=== PATIENT | female | born 1975 | race Caucasian/White ===

== ENCOUNTER → 2020-03-06 | Outpatient (CLI) | payer OTHER | END | disposition home or self-care (01) | LOC: LAB 13:27 → LAB SHORT 13:27 | PROVIDERS: Family Medicine | DX: Z01.419 Encounter for gynecological examination (general) (routine) without abnormal findings (principal) | CPT/HCPCS: G0123 ==

== ENCOUNTER → 2021-06-24 | Outpatient (CLI) | payer OTHER | END | disposition home or self-care (01) | LOC: PLD 07:35 → LAB SHORT 07:35 | DX: N93.8 Other specified abnormal uterine and vaginal bleeding (principal) | CPT/HCPCS: 88305 ==

== ENCOUNTER 2021-08-22 07:01 | Inpatient (IN) | payer OTHER ==
[~2021-08-22] VITALS: Ht 170.2 cm; Wt 80.6 kg
[2021-08-22] MEDS ORDERED: SERT50 PO (08:05)
[2021-08-22] MEDS ORDERED: Hair, Skin & N1 EACH PO (08:05)
[2021-08-22] MEDS ORDERED: VITAMIN D5000 UNIT PO (08:06)
[2021-08-22 11:49] LABS: BASOPHILS ABSOLUTE AUTO 0.05 K/mm3 (0.00-0.23); BASOPHILS PERCENT AUTO 0 % (0-2); EOSINOPHILS ABSOLUTE AUTO 0.04 K/mm3 (0.00-0.68); EOSINOPHILS PERCENT AUTO 0 % (0-6); Hematocrit 41.8 % (33.0-51.0); Hemoglobin 13.7 g/dL (11.5-16.0); IMMATURE GRAN ABSOLUTE AUTO 0.07 K/mm3 (0.00-0.10); IMMATURE GRAN PERCENT AUTO 1 % (0-1); LYMPHOCYTES ABSOLUTE AUTO 0.92 K/mm3 (0.84-5.20); LYMPHOCYTES PERCENT AUTO 7 % (21-46); MONOCYTES ABSOLUTE AUTO 0.31 K/mm3 (0.16-1.47); MONOCYTES PERCENT AUTO 2 % (4-13); Mean Corpuscular HGB 30.2 pg (26.0-34.0); Mean Corpuscular HGB Conc 32.8 g/dL (31.5-36.5); Mean Corpuscular Volume 92 fL (80-100); Mean Platelet Volume 9.7 fL (9.1-12.4); NEUTROPHILS ABSOLUTE AUTO 12.14 K/mm3 (1.96-9.15); NEUTROPHILS PERCENT AUTO 90 % (41-73); Platelet Count 183 K/mm3 (150-400); RDW Coefficient Variation 11.9 % (11.7-14.2); RDW Standard Deviation 40.7 fL (35.1-46.3); Red Blood Cell Count 4.53 M/mm3 (3.80-5.20); White Blood Cell Count 13.53 K/mm3 (4.00-11.30)
--- NOTE | 2021-08-22 11:53 | NUR ---
PT ARRIVED TO UNIT AT APROX 1145 FROM PACU. PT TRANSVERSE INCISION C/D/I. REPORTS PAIN 11/17 BUT APPEARS TO BE RESTING COMFORTABLY AFTER TOTAL 150 MCG FENTANYL IN PACU, MEDICATED WITH TORADOL. EDUCATED PT ON EXERCISE PHYSIOLOGIST CERTIFIED IF NEEDED, PT DECLINES AT THIS TIME, WILL MONITOR FOR INCREASE IN PAIN. PT DENIES NAUSEA, GIVEN CLEAR LIQUIDS AT THIS TIME, WILL ADVANCE TOLERATED. NATARAJAN APPEARS PATENT, DRAINING CLEAR YELLOW URINE. KODAK PAD IN PLACE, NO VAGINAL DRANAINGE NOTED.
--- NOTE | 2021-08-22 17:23 | NUR ---
SHIFT SUMMARY PT POD 0 TOTAL ABD HYSTER. TRANSVERSE INCISION WITH MEDIPORE DRESSING C/D/I. PT HAS BEEN AMBULATING IN HALLWAY WITH ABD BINDER IN PLACE FOR COMFORT. PT DISCONNECTED FROM EXPERIENTIAL THERAPIST DURING AMBULATION, EDUCATED ON ORAL PAIN MED VS IV EXPERIENTIAL THERAPIST, PT AGGREABLE TO TRIALING ORAL MEDS. PER TELEPHONE ORDER DELGADO POWELL'D AT APROX 1745 AND EXPERIENTIAL THERAPIST DISCONECTED AND PT MEDICATED WITH PO. PT TOLERATING REGULAR DIET WITH NO N/V.
--- NOTE | 2021-08-23 03:23 | NUR ---
SHIFT SUMMARY PT IS POD#1 S/P TOTAL HYSTERECTOMY. SHE HAS A TRANSVERSE ABD INCISION, CLOSED WITH STERISTRIPS AND COVERED WITH A MEDIPORE DRESSING. RN CHANGED DRESSING ONCE THIS SHIFT DUE TO SATURATION. PT IS AMBULATING WELL, AND VOIDING WELL. REQUIRES ROXICODONE Q2 HOURS TO ADEQUATELY MANAGE PAIN, BRENNA REPORTS THIS PROVIES ADEQUATE RELIEF. PT REQUESTS TO BE WOKEN UP FOR PAIN MED. LACTATED RINGERS INFUSING AT 125ML/HR. NO BLOOD NOTED TO URINE, SCANT VAGINAL BLOODY DISCHARGE. PT HAS BEEN DRINKING WATER, BUT NOT FEELING HUNGRY TO ATTEMPT PO INTAKE. WILL CONTINUE TO MONITOR.
[2021-08-23 05:18] LABS: BASOPHILS ABSOLUTE AUTO 0.03 K/mm3 (0.00-0.23); BASOPHILS PERCENT AUTO 0 % (0-2); EOSINOPHILS ABSOLUTE AUTO 0.09 K/mm3 (0.00-0.68); EOSINOPHILS PERCENT AUTO 1 % (0-6); Hematocrit 33.3 % (33.0-51.0); Hemoglobin 10.7 g/dL (11.5-16.0); IMMATURE GRAN ABSOLUTE AUTO 0.04 K/mm3 (0.00-0.10); IMMATURE GRAN PERCENT AUTO 0 % (0-1); LYMPHOCYTES ABSOLUTE AUTO 1.89 K/mm3 (0.84-5.20); LYMPHOCYTES PERCENT AUTO 20 % (21-46); MONOCYTES PERCENT AUTO 9 % (4-13); Mean Corpuscular HGB 29.6 pg (26.0-34.0); Mean Corpuscular HGB Conc 32.1 g/dL (31.5-36.5); Mean Corpuscular Volume 92 fL (80-100); Mean Platelet Volume 9.9 fL (9.1-12.4); NEUTROPHILS ABSOLUTE AUTO 6.76 K/mm3 (1.96-9.15); NEUTROPHILS PERCENT AUTO 70 % (41-73); Platelet Count 174 K/mm3 (150-400); RDW Standard Deviation 40.9 fL (35.1-46.3); Red Blood Cell Count 3.62 M/mm3 (3.80-5.20); White Blood Cell Count 9.71 K/mm3 (4.00-11.30)
[2021-08-23] MEDS ORDERED: OXAYDO5 M1 PO (12:10)
[2021-08-23] MEDS ORDERED: IBU800 MG PO (12:10)
--- NOTE | 2021-08-23 16:28 | NUR ---
PT DISCHARGED HOME AT APROX 1600. PT HAD INCREASED BLEEDING AFTER REAPLICATION OF STERI STRIPS PER DR TURNER AT L SIDE OF TRANSVERSE INCISION. DR TURNER NOTIFIED AND COMPRESSION DRESSING APPLIED WITH INSTRUCTIONS TO LEAVE IN PLACE TILL TOMORROW AND IF BLEEDING INCREASES OR CONTINUES TO CALL MD. PT VERBALIZED UNDERSTANDING. PT GIVEN WRITTEN AND VERBAL DC INSTRUCTIONS AND VERBALIZED UNDERSTANDING OF THESE INSTRUCTIONS. IV REMOVED X'S 2. PTS GIVEN WRITTEN RX FOR PAIN MEDICATION, COPY IN CHART. WC TO CAR.
== END 2021-08-23 16:00 | disposition home or self-care (01) | DRG 743 ==
LOC: SURS 07:01 → PRE IP 08:30 → SURS 11:30
PROVIDERS: ADMIT Obstetrics & Gynecology
PROC: 0UB20ZZ Excision of Bilateral Ovaries, Open Approach (ICD-10-PCS; 2021-08-22)
PROC: 0UB70ZZ Excision of Bilateral Fallopian Tubes, Open Approach (ICD-10-PCS; 2021-08-22)
PROC: 0UT90ZZ Resection of Uterus, Open Approach (ICD-10-PCS; principal; 2021-08-22 08:30)
DX: N93.8 Other specified abnormal uterine and vaginal bleeding (principal); N83.8 Other noninflammatory disorders of ovary, fallopian tube and broad ligament; N70.11 Chronic salpingitis; N83.202 Unspecified ovarian cyst, left side; F32.A Depression, unspecified; Z91.048 Other nonmedicinal substance allergy status; Z98.51 Tubal ligation status; Z88.8 Allergy status to other drugs, medicaments and biological substances; Z90.49 Acquired absence of other specified parts of digestive tract; Z98.891 History of uterine scar from previous surgery; Z79.899 Other long term (current) drug therapy
CPT/HCPCS: 36415; 85025; 88305; A9270; J0690; J1885; J2250; J2405; J2704; J3010; J7120

== ENCOUNTER → 2023-05-29 | Outpatient (CLI) | payer OTHER ==
[~2023-05-29] MED LIST: Hair, Skin & N1 EACH PO; IBU800 MG PO; OXAYDO5 M1 PO; SERT50 PO; VITAMIN D5000 UNIT PO
== END ==
LOC: LAB SHORT 12:28 → LAB 12:28
DX: R22.32 Localized swelling, mass and lump, left upper limb (principal)
CPT/HCPCS: 88304